=== PATIENT | male | born 1965 | race Caucasian/White ===

== ENCOUNTER 2017-05-22 17:40 | Emergency (ER) | payer OTHER ==
[~2017-05-22] VITALS: Ht 177.8 cm; Wt 85.0 kg
[~2017-05-22 17:40] MED LIST: ASPEC81 PO; CRG3125 PO; LPT40 PO; LSN5 PO; NTRSLP4 SL; PLV75 PO
[2017-05-22 17:54] VITALS: BP 146/92; PULSE 71; TEMP 37; O2SAT 96; Ht 177.8 cm; Wt 85.0 kg
[2017-05-22] MEDS ORDERED: LIDOCAINE/EPINEPHRINE 1% 20 ML VIAL INFIL ONE (18:15)
[2017-05-22] MEDS ORDERED: CARV3.122 PO (18:23)
[2017-05-22] MEDS ORDERED: CLOP1TAB15 PO (18:23)
[2017-05-22] MEDS ORDERED: ASPI81TA28 PO (18:23)
[2017-05-22] MEDS ORDERED: NTRGSL/4 UT (18:23)
[2017-05-22] MEDS ORDERED: ATOR-26 PO (18:23)
[2017-05-22] MEDS ORDERED: LISI-729 PO (18:23)
--- NOTE | 2017-05-22 23:20 | EMERGENCY ROOM VISIT NOTE ---
ED Visit Note First contact with patient: 17:57 CHIEF COMPLAINT: Hand laceration HISTORY OF PRESENT ILLNESS: This 51-year-old male patient presents to the emergency department after cutting the right hand about 8 hours ago on a piece of metal. The bleeding has not stopped because he is on Plavix and aspirin. Denies weakness or numbness of the hand or fingers. The patient rates the pain as dull and 1/10. The patient denies any other injuries. The patient's Tetanus shot is reportedly up to date. REVIEW OF SYSTEMS: A 6 system review of systems was completed with positives and pertinent negatives listed in the HPI. ALLERGIES: Penicillin MEDICATIONS: See EMR PMH: See EMR SOCIAL HISTORY: Lives at home with family PHYSICAL EXAM: Vital Signs: Reviewed Nurse's notes, vital signs stable. GENERAL : White male, in no acute distress, well-developed, well-nourished. SKIN: There is a 2 cm long laceration on the dorsal aspect of the right hand between the first and second digit. The edges gape apart with traction. There is no foreign material in the wound and it looks clean. There is persistent bleeding. No deep structures such as tendons, bones, or significant blood vessels are seen in the base of the wound. Normal strength and movement of the fingers and wrist. Capillary refill less than 2 seconds. Normal sensation to light and sharp touch. EMERGENCY DEPARTMENT COURSE: I examined the patient. Verbal consent was obtained to perform the procedure. Using sterile technique the wound was cleansed with Betadine. The area was sterilely draped. 3 ml of 1% buffered lidocaine with epinephrine was used to anesthetize the laceration on the hand. Once the patient was anesthetized, the wound was copiously irrigated under pressure with sterile saline. The wound was explored and was as described above. The laceration was repaired using 2 simple interrupted 5-0 nylon sutures with the wound edges being well approximated. The patient tolerated the procedure well. Hemostasis was achieved after this intervention. The area was cleaned with sterile saline and dressed with bacitracin ointment and bandage. The patient was discharged home in good condition. 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 Status: Chronic (2) STEMI (ST elevation myocardial infarction) Status: Resolved (3) Tobacco use disorder Status: Chronic Surgical Problems: (1) H/O colonoscopy Status: Chronic (2) S/p epidermoid cyst removal Status: Chronic (3) S/P lobectomy of lung Status: Chronic (4) S/P tendon repair Status: Chronic (5) S/P vasectomy Status: Chronic Current/Historical Medications Scheduled Aspirin (Aspirin Ec), 81 MG PO DAILY Atorvastatin (Lipitor), 80 MG PO QAM Carvedilol (Coreg), 3.125 MG PO BID Clopidogrel (Plavix), 75 MG PO QAM Lisinopril (Zestril), 5 MG PO QAM Scheduled PRN Nitroglycerin (Nitrostat), 0.4 MG UT UD PRN for Chest Pain Allergies Coded Allergies: Penicillins (Verified Allergy, Unknown, ANAPHYLAXIS, 01/29/15) Vital Signs Date Time Temp Pulse Resp B/P (MAP) Pulse Ox O2 Delivery O2 Flow Rate FiO2 05/22/17 17:54 37.0 71 16 146/92 96 Room Air Departure Information Impression Primary Impression: Laceration of hand Dispostion Home / Self-Care Condition GOOD Forms HOME CARE DOCUMENTATION FORM, IMPORTANT VISIT INFORMATION Patient Instructions My [facility], ED Laceration All, ED Scar Tips to Minimize Additional Instructions Keep wound clean and dry. Do not allow any crusting or dried blood to accumulate on sutures. If this occurs, use a mild soap/water on a Q-tip to clean the wound. Do not use Peroxide to clean the wound as this can delay healing Use an antibiotic ointment like Bacitracin for 3-4 days, then let wound dry. You may bathe and shower as normal, but DO NOT SOAK the wound. Suture removal in about 7 days with your Family Doctor or in the ER. Return sooner for any signs of infection, increasing redness, swelling, or drainage.
== END 2017-05-22 19:00 | disposition home or self-care (01) ==
LOC: C.EDB 17:41 → C.EDD 19:00
DX: S61.411A Laceration without foreign body of right hand, initial encounter (principal); W45.8XXA Other foreign body or object entering through skin, initial encounter; Z79.02 Long term (current) use of antithrombotics/antiplatelets; Z79.82 Long term (current) use of aspirin; Z85.118 Personal history of other malignant neoplasm of bronchus and lung; I25.2 Old myocardial infarction

== ENCOUNTER 2017-07-04 11:45 | Emergency (ER) | payer OTHER ==
[~2017-07-04] VITALS: Ht 177.8 cm; Wt 84.0 kg
[~2017-07-04 11:45] MED LIST changes: -ASPEC81 PO; +ASPI81TA28 PO; +ATOR-26 PO; +CARV3.122 PO; +CLOP1TAB15 PO; -CRG3125 PO; +LISI-729 PO; -LPT40 PO; -LSN5 PO; +NTRGSL/4 UT; -NTRSLP4 SL; -PLV75 PO
[2017-07-04 11:50] VITALS: TEMP 36.9; Ht 177.8 cm; Wt 84.0 kg
[2017-07-04] MEDS ORDERED: OXYCODONE HCL IR 5 MG TAB (IMMEDIATE RELEASE) PO STA (12:04)
[2017-07-04] MEDS ORDERED: CYCLOBENZAPRINE HCL 10 MG TAB PO STA (12:04)
--- NOTE | 2017-07-04 12:39 | DIAGNOSTIC IMAGING REPORT ---
RIBS BILATERAL WITH PA CHEST HISTORY: 52 years-old Male Bilateral posterior rib pain acute bilateral posterior rib pain status post recent fall COMPARISON: Chest radiograph 02/23/2015 TECHNIQUE: PA view of the chest with bilateral rib radiographs for a total of 9 images FINDINGS: Cardiomediastinal and hilar silhouettes are within normal limits. No pneumothorax, pleural effusion, focal airspace consolidation or overt pulmonary edema. The bones of the chest appear grossly intact. Indeterminate round 3 mm calcification of the left upper abdomen. No acute displaced rib fracture identified. IMPRESSION: 1. No acute process of the chest. 2. No acute displaced rib fracture or pneumothorax identified. The above report was generated using voice recognition software. It may contain grammatical, syntax or spelling errors. Electronically signed by: Eber Aguirre M.D. 07/04/2017 12:38 PM Dictated Date/Time: 07/04/2017 12:36 PM
--- NOTE | 2017-07-04 12:41 | DIAGNOSTIC IMAGING REPORT ---
THORACIC SPINE 3 VIEWS ROUTINE HISTORY: 52 years-old Male Thoracic back pain acute mid back pain status post recent fall COMPARISON: Rib and chest radiograph same day TECHNIQUE: 3 views of the thoracic spine FINDINGS: There is no acute fracture or subluxation. Moderate intervertebral disc space narrowing with endplate spurring of the lower cervical spine. Imaged lung fontenot appear clear. Surgical suture material projects over the medial right upper lung. IMPRESSION: No acute fracture or subluxation. The above report was generated using voice recognition software. It may contain grammatical, syntax or spelling errors. Electronically signed by: Eber Aguirre M.D. 07/04/2017 12:39 PM Dictated Date/Time: 07/04/2017 12:38 PM
[2017-07-04] MEDS ORDERED: CYAN10004 PO (12:44)
[2017-07-04] MEDS ORDERED: MULT-506 PO (12:44)
--- NOTE | 2017-07-04 13:00 | EMERGENCY ROOM VISIT NOTE ---
ED Visit Note First contact with patient: 11:58 CHIEF COMPLAINT: Thoracic back pain HISTORY OF PRESENT ILLNESS: This 52-year-old male presents to ER with chief complaint of thoracic back pain which started on Thursday after slipping on the driveway and twisting his back. The patient denies any pain radiating down his arms or any neck or low back pain. The patient is on blood thinners and therefore did not take anything for pain at home. He states his symptoms are getting worse. REVIEW OF SYSTEMS: 6 system review was performed and was negative unless stated otherwise in history of present illness. PMH: The patient is healthy; lung removed, CAD with cardiac stent placement SOCIAL HISTORY: Patient lives with his . The patient admits to tobacco use and occasional alcohol use. PHYSICAL EXAM: Vital Signs: Were reviewed reviewed Nurse's notes. GENERAL: 52- year-old white male appears in no acute distress. MENTAL STATUS: Alert and oriented. CERVICAL SPINE: No gross bony deformity noted. No erythema or edema noted. Patient is full range of motion of the neck without pain. THORACIC SPINE: No gross bony deformity noted. The patient has tenderness palpation over the spinous process of the mid to lower thoracic region as well as in the left paravertebral region. LUNGS: Clear to auscultation without wheezes rales or rhonchi. CARDIAC: Regular rate and rhythm without murmur. EMERGENCY DEPARTMENT COURSE: The patient was evaluated. The patient was given [place] 5/325 mg 2 tablets p.o. for pain. He was also given Paxil 10 mg p.o. for pain. X-ray of the thoracic spine as well as ribs were ordered interpreted by the radiologist and myself. DIAGNOSTICS:RIBS BILATERAL WITH PA CHEST HISTORY: 52 years-old Male Bilateral posterior rib pain acute bilateral posterior rib pain status post recent fall COMPARISON: Chest radiograph 02/23/2015 TECHNIQUE: PA view of the chest with bilateral rib radiographs for a total of 9 images FINDINGS: Cardiomediastinal and hilar silhouettes are within normal limits. No pneumothorax, pleural effusion, focal airspace consolidation or overt pulmonary edema. The bones of the chest appear grossly intact. Indeterminate round 3 mm calcification of the left upper abdomen. No acute displaced rib fracture identified. IMPRESSION: 1. No acute process of the chest. 2. No acute displaced rib fracture or pneumothorax identified. The above report was generated using voice recognition software. It may contain grammatical, syntax or spelling errors. Electronically signed by: Eber Aguirre M.D. THORACIC SPINE 3 VIEWS ROUTINE HISTORY: 52 years-old Male Thoracic back pain acute mid back pain status post recent fall COMPARISON: Rib and chest radiograph same day TECHNIQUE: 3 views of the thoracic spine FINDINGS: There is no acute fracture or subluxation. Moderate intervertebral disc space narrowing with endplate spurring of the lower cervical spine. Imaged lung fontenot appear clear. Surgical suture material projects over the medial right upper lung. IMPRESSION: No acute fracture or subluxation. The above report was generated using voice recognition software. It may contain grammatical, syntax or spelling errors. Electronically signed by: Eber Aguirre M.D. 07/04/2017 12:39 PM Dictated Date/Time: 07/04/2017 12:38 PM The patient was informed of the findings. The patient was reevaluated and was feeling better. The patient was discharged home in stable condition. DIAGNOSIS: Thoracic back strain DISCHARGE INSTRUCTIONS AND TREATMENT: Take Flexeril as prescribed. Take oxycodone as prescribed for pain. Do not drive while taking the Flexeril or the oxycodone. Do not do any strenuous exercise with her upper body until symptoms have improved. If symptoms are not improving in 5-7 days, follow-up with your family doctor for reevaluation. 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 Status: Chronic (2) STEMI (ST elevation myocardial infarction) Status: Resolved (3) Tobacco use disorder Status: Chronic Surgical Problems: (1) H/O colonoscopy Status: Chronic (2) S/p epidermoid cyst removal Status: Chronic (3) S/P lobectomy of lung Status: Chronic (4) S/P tendon repair Status: Chronic (5) S/P vasectomy Status: Chronic Current/Historical Medications Scheduled Aspirin (Aspirin Ec), 81 MG PO DAILY Atorvastatin (Lipitor), 80 MG PO QAM Carvedilol (Coreg), 3.125 MG PO BID Clopidogrel (Plavix), 75 MG PO QAM Cyanocobalamin (Vitamin B-12 1000 Mcg), 1 TAB PO DAILY Lisinopril (Zestril), 5 MG PO QAM Multivitamin (Multivitamin), 1 TAB PO DAILY Scheduled PRN Nitroglycerin (Nitrostat), 0.4 MG UT UD PRN for Chest Pain Allergies Coded Allergies: Penicillins (Verified Allergy, Unknown, ANAPHYLAXIS, 07/04/17) Vital Signs Date Time Temp Pulse Resp B/P (MAP) Pulse Ox O2 Delivery O2 Flow Rate FiO2 07/04/17 11:50 36.9 62 18 125/79 96 Medications Administered Medications (Trade) Dose Ordered Sig/Victor Manuel Route Start Time Stop Time Status Last Admin Dose Admin Oxycodone HCl (Roxicodone Immediate Rel Tab) 10 mg NOW STAT PO 07/04/17 12:04 07/04/17 12:07 DC 07/04/17 12:15 10 MG Cyclobenzaprine HCl (Flexeril Tab) 10 mg NOW STAT PO 07/04/17 12:04 07/04/17 12:07 DC 07/04/17 12:15 10 MG Departure Information Referrals No Doctor, Assigned (PCP) Patient Instructions [facility]
[2017-07-04] MEDS ORDERED: CYCL10TA6 PO (13:02)
[2017-07-04] MEDS ORDERED: OXYC1TAB3 PO (13:02)
[2017-07-04 13:13] VITALS: BP 150/83; PULSE 54; O2SAT 97
== END 2017-07-04 13:13 | disposition home or self-care (01) ==
LOC: C.EDB 11:47 → C.EDD 13:13
DX: S29.012A Strain of muscle and tendon of back wall of thorax, initial encounter (principal); W01.0XXA Fall on same level from slipping, tripping and stumbling without subsequent striking against object, initial encounter; I25.10 Atherosclerotic heart disease of native coronary artery without angina pectoris; I25.2 Old myocardial infarction; F17.200 Nicotine dependence, unspecified, uncomplicated; Z79.82 Long term (current) use of aspirin; Z79.01 Long term (current) use of anticoagulants; Z88.0 Allergy status to penicillin; Z95.5 Presence of coronary angioplasty implant and graft